=== PATIENT | female | born 1925 | race Caucasian/White ===

== ENCOUNTER 2016-04-02 11:19 | Emergency (ER) | payer OTHER, MEDICARE ==
[2016-04-02 11:28] VITALS: BP 152/84; PULSE 80; RESP 14; TEMP 97.9; O2SAT 92
[2016-04-02 11:57] LABS: % IMMATURE GRANULYOCYTES 0.3 % (0.0-1.1); ABSOLUTE IMMATURE GRANULOCYTES 0.02 10^3/uL (0.00-0.10); ADD DIFF? NO; ADD MORPH? NO; ADD SCAN? NO; ATYPICAL LYMPHOCYTE FLAG 0 (0-99); FRAGMENT RBC FLAG 0 (0-99); HEMATOCRIT 41.3 % (38.0-47.0); HEMOGLOBIN 14.1 g/dL (12.6-16.3); LEFT SHIFT FLG 0 (0-99); LIPEMIA HEMOLYSIS FLAG 90 (0-99); MEAN CELL HEMOGLOBIN 30.7 pg (27.9-34.1); MEAN CELL HEMOGLOBIN CONCENTR. 34.1 g/dL (32.4-36.7); MEAN CELL VOLUME 89.8 fL (81.5-99.8); MEAN PLATELET VOLUME 11.7 fL (8.7-11.7); PLATELET CLUMPS FLAG 0 (0-99); PLATELET COUNT 238 10^3/uL (150-400)
--- NOTE | 2016-04-02 12:15 | EDPHY ---
H & P Stated Complaint: DARK URINE, WHITE STOOLS X1 WEEK Time Seen by Provider: 04/02/16 11:41 HPI/ROS: CHIEF COMPLAINT: Abdominal pain, fatigue, white stools HISTORY OF PRESENT ILLNESS: The patient is an 89 y/o female arriving at the referral of her PCP due to decreased appetite, abdominal discomfort, fatigue, and white stools for the last 2 weeks. Her abdominal pain is generalized and mild in severity. The pain extends to both flanks. She has associated chills. She denies recent international travel or history of hepatitis. She has been able to drink fluids and ate breakfast this morning. Eating aggravates her abdominal discomfort. She denies new supplements or medications. REVIEW OF SYSTEMS: Constitutional: see HPI Eyes: No visual changes ENT: No sore throat Respiratory: No cough, no shortness of breath Cardiac: No chest pain Gastrointestinal: see HPI Genitourinary: No hematuria, no dysuria Musculoskeletal: No leg pain or swelling Skin: No rash Neurological: No headache, no numbness, no weakness Psychiatric: No depression Source: Patient - Personal History Current Tetanus/Diphtheria Vaccine: Yes Current Tetanus Diphtheria and Acellular Pertussis (TDAP): Yes Tetanus Vaccine Date: 2013 - Medical/Surgical History PMH: PMH includes: 1. Macular degeneration 2. Meniere's syndrome 3. Ortho surgeries to left leg 4. Hypertension Patient reports her allergy to contrast caused her to "swell up like a balloon" and was from a CT in 1950.. Hx Asthma: No Hx Chronic Respiratory Disease: No Hx Diabetes: No Hx Cardiac Disease: No Hx Renal Disease: No Hx Cirrhosis: No Hx Alcoholism: No Hx HIV/AIDS: No Hx Splenectomy or Spleen Trauma: No Other PMH: PMH- HTN,. PSH- SHOULDER AND HIP REPLACEMENT - Social History Smoking Status: Never smoked Additional Social History: Lives in [place]. - Physical Exam Exam: General Appearance: Alert, no distress Eyes: Pupils equal and round, no conjunctival pallor or injection ENT, Mouth: Mucous membranes moist Neck: Normal inspection Respiratory: Lungs are clear to auscultation Cardiovascular: Regular rate and rhythm, 2/6 systolic murmur Gastrointestinal: Abdomen has tender palpable 5cm mass in epigastrium Neurological: A&O, nonfocal, normal gait Skin: Warm and dry, no rash, jaundiced Extremities: Nontender, no pedal edema Psychiatric: Mood and affect normal Constitutional: Initial Vital Signs Temperature (C) 36.6 C 04/02/16 11:19 Heart Rate 80 04/02/16 11:19 Respiratory Rate 14 04/02/16 11:19 Blood Pressure 152/84 H 04/02/16 11:19 O2 Sat (%) 92 04/02/16 11:19 O2 Delivery Mode Room Air Allergies/Adverse Reactions: Iodinated Contrast Media - Oral and Allergy (Severe, Verified 05/15/10 13:58) Anaphylaxis Opioids - Morphine Analogues Allergy (Severe, Verified 05/15/10 14:00) Other-Enter Comments lactose [Lactose] Allergy (Intermediate, Verified 05/15/10 13:58) Abdominal Cramping/DIARRHEA Sulfa (Sulfonamide Antibiotics) Allergy (Intermediate, Verified 05/15/10 14:00) Hives Home Medications: Medication Instructions Recorded C/E/Zn/Cu/OM3/DHA/EPA/LUT/ZEAX 2 each PO BID 06/16/11 [Preservision Softgel (OTC)] Glucosamine/Chondroitin 1 each PO BID 06/16/11 [Glucosamine/Chondroitin (OTC)] Lisinopril [Zestril 5 mg] 5 mg PO DAILY 06/16/11 Potassium Cl [Klor-Con] 20 meq PO DAILY 06/16/11 Triamterene/Hydrochlorothiazid 1 each PO BID 06/16/11 [Triamterene-Hctz 37.5-25 mg Tb] Zolpidem Tartrate [Ambien] 2.5 - 5 mg PO HSPRN PRN 06/16/11 Herbals/Supplements -Info Only 1 ea PO DAILY 09/27/11 Acetaminophen [Tylenol Tablet] 650 mg PO BID PRN 10/16/13 Cholecalciferol Vit D3 [Vitamin D3 2,000 units PO DAILY 10/16/13 (OTC)] Levothyroxine [Synthroid 25 mcg 25 mcg PO DAILY06 10/16/13 (RX)] [place]-3 Fatty Acids [Fish Oil 1000 2,000 mg PO DAILY 10/16/13 mg (OTC)] Medical Decision Making - Diagnostics Imaging: Study: CT of the Abdomen/Pelvis without IV contrast Indication: Pain, white stools, mass on exam Results: CT scan of the abdomen was obtained. The results of the study are Presumed mass in the head of the pancreas with biliary and pancreatic ductal obstruction. The study was read by the radiologist, Dr. Perez. I viewed the images myself on the PACS system. ED Course/Re-evaluation: IV established. Labs drawn including CBC, CHEM, LFT, lipase. Plan for abdominal CT without IV contrast due to patient's reported contrast allergy, although she says this is from a CT in the 1950s prior to when CTs were used. 1248: CT shows pancreatic head mass per Dr. Perez. 1302: I discussed results with patient and told her they indicated likely pancreatic cancer. I offered admission to the hospital, which she declined. Plan to consult Dr. Royer Gibson GI, and Dr. Barbosa, patient's PCP, prior to discharge. 1353: Consulted with [facility]. They will call her to set up a follow up appointment with her as an outpatient for next week. 1356: Consulted with Dr. Barbosa, PCP. She will follow the patient's treatment. 1358: Discussed follow up plan with patient. She received a CT report of the study to bring with her to her follow up appointments. I gave her strict return precautions. She agrees to plan. Differential Diagnosis: Differential diagnosis includes though it is not limited to acute hepatitis, acute cholangitis, cholecystitis, common bile duct stone. - Data Points Laboratory Results: Laboratory Results 04/02/16 11:40 04/02/16 11:40 04/02/16 11:40 WBC 7.37 10^3/uL (3.80-9.50) RBC 4.60 10^6/uL (4.18-5.33) Hgb 14.1 g/dL (12.6-16.3) Hct 41.3 % (38.0-47.0) MCV 89.8 fL (81.5-99.8) MCH 30.7 pg (27.9-34.1) MCHC 34.1 g/dL (32.4-36.7) RDW 14.0 % (11.5-15.2) Plt Count 238 10^3/uL (150-400) MPV 11.7 fL (8.7-11.7) Neut % (Auto) 72.6 % (39.3-74.2) Lymph % (Auto) 15.9 % (15.0-45.0) [place] % (Auto) 9.0 % (4.5-13.0) Eos % (Auto) 1.5 % (0.6-7.6) Baso % (Auto) 0.7 % (0.3-1.7) Nucleat RBC Rel Count 0.0 % (0.0-0.2) Absolute Neuts (auto) 5.36 10^3/uL (1.70-6.50) Absolute Lymphs (auto) 1.17 10^3/uL (1.00-3.00) Absolute Monos (auto) 0.66 10^3/uL (0.30-0.80) Absolute Eos (auto) 0.11 10^3/uL (0.03-0.40) Absolute Basos (auto) 0.05 10^3/uL (0.02-0.10) Absolute Nucleated RBC 0.00 10^3/uL (0-0.01) Immature Gran % 0.3 % (0.0-1.1) Immature Gran # 0.02 10^3/uL (0.00-0.10) Sodium 137 mEq/L (134-144) Potassium 5.3 H mEq/L (3.5-5.2) Chloride 102 mEq/L (97-110) Carbon Dioxide 23 mEq/l (22-31) Anion Gap 12 mEq/L (8-16) BUN 12 mg/dL (7-23) Creatinine 0.6 mg/dL (0.6-1.0) Estimated GFR > 60 Glucose 122 H mg/dL (70-100) Calcium 9.6 mg/dL (8.5-10.4) Total Bilirubin 10.6 H mg/dL (0.1-1.4) Conjugated Bilirubin 9.0 H mg/dL (0.0-0.5) Unconjugated Bilirubin 1.6 H mg/dL (0.0-1.1) AST 587 H IU/L (14-46) ALT 891 H IU/L (9-52) Alkaline Phosphatase 1197 H IU/L (38-126) Total Protein 7.6 g/dL (6.3-8.2) Albumin 4.3 g/dL (3.5-5.0) Lipase 192.0 IU/L (23-300) Specimen Hemolysis 188 Departure - Departure Disposition: Home, Routine, Self-Care Clinical Impression: Obstructive hyperbilirubinemia, Pancreatic neoplasm Condition: Fair Instructions: Abdominal Pain (ED) Additional Instructions: 1. You have a mass that involves the head of your pancreas. Your director of outreach's office will contact you to set up a follow up appointment for next week. 2. Return to the ED for worsening pain, vomiting, or any concerns. Referrals: Deanna Barbosa MD [Primary Care Provider] - As per Instructions Royer Gibson MD, FACG [Medical Doctor] - As per Instructions Report Scribed for: Sadia Pollock Report Scribed by: Lucinda Ferguson Date of Report: 04/02/16 Time of Report: 12:17 Physician Review and Approval Statement: 04/02/16 12:17 Portions of this note were transcribed by a biomedical engineering technologist. I personally performed a history, physical exam, medical decision making, and confirmed accuracy of information the transcribed note.
[2016-04-02 12:17] LABS: ALANINE AMINOTRANSFERASE 891 IU/L (9-52); ALBUMIN 4.3 g/dL (3.5-5.0); ALKALINE PHOSPHATASE 1197 IU/L (38-126); ANION GAP 12 mEq/L (8-16); ASPARTATE AMINOTRANSFERASE 587 IU/L (14-46); BILIRUBIN,TOTAL 10.6 mg/dL (0.1-1.4); BILIRUBIN-UNCONJUGATED 1.6 mg/dL (0.0-1.1); CALCIUM 9.6 mg/dL (8.5-10.4); CARBON DIOXIDE 23 mEq/l (22-31); CHLORIDE 102 mEq/L (97-110); CREATININE 0.6 mg/dL (0.6-1.0); GLOMERULAR FILTRATION RATE > 60; GLUCOSE 122 mg/dL (70-100); POTASSIUM 5.3 mEq/L (3.5-5.2); SODIUM 137 mEq/L (134-144); SPECIMEN HEMOLYSIS 188; TOTAL PROTEIN 7.6 g/dL (6.3-8.2)
--- NOTE | 2016-04-02 13:08 | CT ---
CT Scan of the Abdomen and Pelvis (Without IV Contrast) Clinical Indications: Abdominal pain and jaundice. Technique: No intravenous contrast was given. Multidetector helical CT imaging is performed from th e diaphragm to the symphysis pubis. Dose reduction techniques were utilized. Findings: The lung bases are clear except for some minimal linear atelectatic change. Dense mitral v alvular calcification is present. There is intra- and extrahepatic biliary ductal dilatation. The gallbladder is diffusely distended me asuring 5.8 x 6.0 x 9.8 cm. The pancreatic duct is diffusely distended to the level of the pancreatic head. There is a suspected mass in the pancreatic head which likely represents the residual pancreas , which measures 2.1 x 3.0 x 4.4 cm. The spleen is unremarkable. There is no obvious adenopathy, but staging of the vasculature is not possible on this noncontrast examination. I do not see a large amou nt of collaterals around the spleen to suggest splenic venous occlusion or SMV or portal venous occlu nat. Small bowel and colon are unremarkable. The kidneys and adrenal glands are unremarkable. Bones exhibit degenerative changes. No lytic or blastic lesions. There is a left total hip arthroplas ty. 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 Critical results relayed by Dr. Perez to Dr. Pollock on April 02, 2016 at 12:56 p.m.
== END 2016-04-02 14:09 | disposition home or self-care (01) ==
DX: R17 Unspecified jaundice (principal); C25.9 Malignant neoplasm of pancreas, unspecified; I10 Essential (primary) hypertension